=== PATIENT | female | born 1955 | race Two or more races ===

== ENCOUNTER 2021-03-11 07:15 | Inpatient (IN) | payer OTHER ==
[~2021-03-11] VITALS: Ht 162.6 cm; Wt 114.3 kg
[~2021-03-11 07:15] MED LIST: COZAAR100 MG PO; GABAPENTIN400 MG PO; LODINE XL500 MG PO; PECID PO; RELAFEN PO; SYMBICORT 16010.2 GM IH; SYNTHROID100 MCG PO; TRAMADOL HCL E300 M1 PO
[2021-03-11] MEDS ORDERED: HYDROCH PO (10:29)
[2021-03-11] MEDS ORDERED: AMLODI PO (10:30)
[2021-03-11] MEDS ORDERED: OMEPRAZOLE40 MG PO (10:30)
[2021-03-11] MEDS ORDERED: ALBUTERO (10:31)
[2021-03-11] MEDS ORDERED: SINGULAIR10 MG PO (10:31)
[2021-03-11] MEDS ORDERED: GABAPENTIN400 MG PO (10:31)
[2021-03-11] MEDS ORDERED: VITAMIN D PO (10:32)
[2021-03-18] MEDS ORDERED: CYCLOBENZAPRINE10 MG (09:09)
[2021-03-18] MEDS ORDERED: FAMOTIDINE40 MG (09:09)
[2021-03-18] MEDS ORDERED: TERBINAFINE HC250 MG (09:10)
[2021-03-18] MEDS ORDERED: HYDROCHLOROTHIA25 MG (09:11)
[2021-03-18] MEDS ORDERED: VITAMIN E400 UNI6 (09:13)
[2021-03-18] MEDS ORDERED: VITAMIN C WITH500 MG (09:13)
[2021-03-18] MEDS ORDERED: ALENDRONATE SOD70 MG (09:13)
[2021-03-18] MEDS ORDERED: FOLINIC-PLUS C1 EACH (09:13)
[2021-03-18] MEDS ORDERED: CLOBETASOL PROP15 G1 (09:13)
[2021-03-18] MEDS ORDERED: NORVASC2.5 MG (09:14)
[2021-03-18] MEDS ORDERED: MAXIMUM D3325 MCG (09:14)
[2021-03-18] MEDS ORDERED: ALBUTEROL0.63 MG/3 (09:15)
[2021-03-18] MEDS ORDERED: NABUMETONE500 MG (09:15)
== END 2021-03-19 20:45 | DRG 470 ==
LOC: O/R 03-17 06:33 → SURH 03-17 07:15
PROVIDERS: ADMIT Orthopaedic Surgery; ATTEND Orthopaedic Surgery
PROC: 0QUF07Z Supplement Left Patella with Autologous Tissue Substitute, Open Approach (ICD-10-PCS; 2021-03-17)
PROC: 3E0F7GC Introduction of Other Therapeutic Substance into Respiratory Tract, Via Natural or Artificial Opening (ICD-10-PCS; 2021-03-17)
PROC: 0SRD0J9 Replacement of Left Knee Joint with Synthetic Substitute, Cemented, Open Approach (ICD-10-PCS; principal; 2021-03-17 10:45)
DX: M17.12 Unilateral primary osteoarthritis, left knee (principal); D62 Acute posthemorrhagic anemia; M85.662 Other cyst of bone, left lower leg; J44.9 Chronic obstructive pulmonary disease, unspecified; I10 Essential (primary) hypertension; Z20.822 Contact with and (suspected) exposure to COVID-19